=== PATIENT | female | born 1960 | race Caucasian/White ===

== ENCOUNTER 2021-11-24 10:09 | Emergency (ER) | payer OTHER ==
[2021-11-24 10:26] VITALS: BP 128/72; PULSE 86; TEMP 99; BMI 25.0
== END 2021-11-24 11:07 | disposition home or self-care (01) ==
LOC: FER 10:09
DX: S52.501A Unspecified fracture of the lower end of right radius, initial encounter for closed fracture (principal); W01.0XXA Fall on same level from slipping, tripping and stumbling without subsequent striking against object, initial encounter
CPT/HCPCS: 73110-TC-RT-FY; 99283-25